=== PATIENT | male | born 1950 | race Caucasian/White ===

== ENCOUNTER 2016-11-21 05:28 | Emergency (ER) | payer SELFPAY ==
[2015-05-12 15:37] VITALS: BMI 22.3
[~2016-11-21 05:28] MED LIST: ADVIL200 MG PO; METOPROLOL TART50 MG PO; MIRALAX17 GM PO; NORVASC5 MG PO; PLAVIX75 MG PO
== END 2016-11-21 06:07 | disposition home or self-care (01) ==
LOC: D.ER 05:28
DX: J02.9 Acute pharyngitis, unspecified (principal); I10 Essential (primary) hypertension; I44.0 Atrioventricular block, first degree

== ENCOUNTER 2017-01-02 19:56 | Emergency (ER) | payer SELFPAY | END 2017-01-02 23:25 | disposition home or self-care (01) | LOC: D.ER 19:56 | DX: M79.604 Pain in right leg (principal); S86.911A Strain of unspecified muscle(s) and tendon(s) at lower leg level, right leg, initial encounter; X58.XXXA Exposure to other specified factors, initial encounter; Y93.89 Activity, other specified; Y92.89 Other specified places as the place of occurrence of the external cause; M77.9 Enthesopathy, unspecified; I10 Essential (primary) hypertension ==

== ENCOUNTER 2018-07-23 21:24 | Emergency (ER) | payer SELFPAY ==
[~2018-07-23] VITALS: Ht 177.8 cm; Wt 72.7 kg
[2018-07-23 21:28] VITALS: Ht 177.8 cm; Wt 72.7 kg
[2018-07-23] MEDS ORDERED: CATAPRES0.1 MG (21:31)
[2018-07-23] MEDS ORDERED: NORVASC5 MG PO (21:31)
[2018-07-23] MEDS ORDERED: TORADOL10 MG PO (22:19)
[2018-07-23 23:38] VITALS: BP 134/86
== END 2018-07-23 23:25 | disposition home or self-care (01) ==
LOC: D.ER 21:24
DX: N48.89 Other specified disorders of penis (principal); I10 Essential (primary) hypertension; F17.200 Nicotine dependence, unspecified, uncomplicated